=== PATIENT | male | born 1970 | race Caucasian/White ===

== ENCOUNTER 2017-01-04 23:05 | Inpatient (IN) | payer BC ==
--- NOTE | ~2017-01-04 | CN ---
Consultation Report [place] [address] [facility] [place]. [address] NAME: KELSEY MONTOYA II : 66 STATUS : ADM IN PAT#: [id number] AGE: 46 ADM/REG DATE : 01/05/17 MR#: [id number] REPORT SERV DATE: 01/05/17 DICTATED BY: SEA AARON DATE: 01/05/17 REPORT STATUS : Draft TRANSCRIBED BY: MODL DATE: 01/05/17 CONSULTATION DATE OF CONSULTATION: 01/05/2017 "I am asked to see this gentleman with change in bowel habit." HISTORY OF PRESENT ILLNESS: This patient has established with Dr. Multani. Apparently, there has been a recent diagnosis of severe ulcerative colitis being treated with steroids. Symptoms progressed, primarily through diarrhea. He has had weakness and fatigue and presented for evaluation. He denies any upper abdominal pain, but has had mild nausea. He has had mild lower abdominal cramps with voluminous diarrhea, with blood mixed in. He denies chills, fever, or sweats. REVIEW OF SYSTEMS: Otherwise unremarkable. PHYSICAL EXAMINATION: CHEST: Clear. CARDIAC: Regular rhythm. ABDOMEN: Soft and minimally tender. Bowel sounds are active. No palpable mass. LABORATORY DATA: Lab work has shown a white count of 8300, hemoglobin is 11.8. Electrolytes are normal. A CT scan of the abdomen was ordered and this is reportedly normal. IMPRESSION: Ulcerative colitis with increasing symptoms. PLAN: 1. Oral vancomycin 125 mg q.6 hours. 2. Begin IV steroids 100 mg every 8 hours and we will follow with you. CARLOS/LISA Sea Aaron M.D. / [id number] CC: Consultation Report [address] [address] NAME: KELSEY MONTOYA II : 66 STATUS : ADM IN PAT#: [id number] AGE: 46 ADM/REG DATE : 01/05/17 MR#: [id number] REPORT SERV DATE: 01/05/17 DICTATED BY: SEA AARON DATE: 01/05/17 REPORT STATUS : Draft TRANSCRIBED BY: LISA DATE: 01/05/17 MD Angelita Giordano M.D.
--- NOTE | ~2017-01-04 | DS ---
Discharge Summary [facility] [address] [place]. [address] NAME: KELSEY MONTOYA II : 66 STATUS : DIS IN PAT#: [id number] AGE: 46 ADM/REG DATE : 01/05/17 MR#: [id number] REPORT SERV DATE: 01/08/17 DICTATED BY: STERLING BURK DATE: 01/08/17 REPORT STATUS : Draft TRANSCRIBED BY: MODL DATE: 01/08/17 ADMISSION DATE: 01/05/2017 DISCHARGE DATE: 01/08/2017 DISCHARGE DIAGNOSES: 1. Clostridium difficile colitis. 2. Ulcerative colitis flare. 3. Intractable diarrhea. 4. Hematochezia, with stable hemoglobin. 5. Unintentional weight loss secondary to above. CONSULTS: GI. PROCEDURES: None. HOSPITAL COURSE: This is a 46-year-old gentleman with history of ulcerative colitis who was admitted to the hospital with C. diff colitis as well as ulcerative colitis flare. For details, please refer to the excellent H and P dictated by Dr. Jensen Francisco. In summary, the patient was admitted and he was treated with p.o. vancomycin as well as IV steroids for the C. diff colitis as well as the ulcerative colitis flare. It appeared that the patient was suffering more from ulcerative colitis as the patient remained afebrile, hemodynamically stable with normal white blood cell count throughout the entire hospital stay. The patient did have intractable diarrhea with bowel movements as many as 12 the first few days of the hospital stay and it decreased down to about five bowel movements per day. The patient was now confident that he would be able to not only replace the volume loss and diarrhea, but able to control his diarrhea better at home. After the patient was cleared for discharge from Gastroenterology, the patient is now being set up for discharge to home with close outpatient followup instructions. The patient has not had any other complications during this hospital stay. DISPOSITION: Home. DISCHARGE MEDICATIONS: 1. Vancomycin 125 mg p.o. q.6 hours x10 days. 2. Zofran 4 mg to 8 mg p.o. q.4 hours p.r.n. 3. Prednisone per GI. FOLLOWUP: 1. Please follow up with PCP in the next one to two weeks. 2. Please follow up with GI as instructed. A total of 25 minutes spent in coordinating this patient's discharge today. DICTATED BY: Sterling Burk MD Discharge Summary [facility] [address] [address] NAME: KELSEY MONTOYA II : 66 STATUS : DIS IN PAT#: [id number] AGE: 46 ADM/REG DATE : 01/05/17 MR#: [id number] REPORT SERV DATE: 01/08/17 DICTATED BY: STERLING BURK DATE: 01/08/17 REPORT STATUS : Draft TRANSCRIBED BY: LISA DATE: 01/08/17 [facility] [place] Sterling Burk MD / [id number] CC: MD TRINITY Giordano DAVID KEITH
--- NOTE | ~2017-01-04 | HP ---
History And Physical [place] [id number] [facility] [place]. [address] NAME: KELSEY MONTOYA II : 66 STATUS : ADM IN PAT#: [id number] AGE: 46 ADM/REG DATE : 01/05/17 MR#: [id number] REPORT SERV DATE: 01/05/17 DICTATED BY: FRANK LOZANO DATE: 01/05/17 REPORT STATUS : Draft TRANSCRIBED BY: MODL DATE: 01/05/17 DATE OF ADMISSION: 01/05/2017 CHIEF COMPLAINT: A 46-year-old male, recently diagnosed with ulcerative colitis, now presenting with intractable diarrhea and abdominal pain. HISTORY OF PRESENT ILLNESS: The patient's history was obtained through careful interview with the patient, coupled with review of [facility] and [facility] medical records. About a month ago, the patient began to develop bloody diarrhea and then two weeks ago he was able to present with Dr. Refugio Multani, sand sifter, for a colonoscopy and was diagnosed with "ulcerative colitis." The patient has been on high-dose steroids since that time but despite this has had a persistent diarrhea, now up to about 12+ bowel movements a day. There is consistent blood tinging in his diarrhea. He describes increasing abdominal discomfort in his lower quadrants, the right greater than left, a gassy cramping pressure-like quality, 6/10 severity. He describes lightheadedness, weakness. He has lost about 25 pounds in the last month alone and then since 08/2016 had an additional eight pounds of weight loss. He has been diaphoretic, has had nausea, but no vomiting. No fevers or chills. No shortness of breath. REVIEW OF SYSTEMS: Otherwise, a 14-point review of systems was obtained and was negative. PAST MEDICAL HISTORY: 1. Ulcerative colitis. Apparently, diagnosed by colonoscopy two weeks ago, but he believes he had a bloody diarrhea episode of this about 15 years ago. 2. Nephrolithiasis, status post lithotripsy, seen by Dr. Coronel. 3. No cardiac disease. No lung disease. PAST SURGICAL HISTORY: Denies any. ALLERGIES: VIOXX. SOCIAL HISTORY: No tobacco abuse. Social alcohol use. He is . Has a company tanker truck driver. Lives in [place], [place]. Has one 18-year-old child. FAMILY HISTORY: Diabetes and cancer. CURRENT MEDICATIONS: Include prednisone 30 mg p.o. b.i.d. History And Physical [address] [place]. [address] NAME: KELSEY MONTOYA II : 66 STATUS : ADM IN PAT#: [id number] AGE: 46 ADM/REG DATE : 01/05/17 MR#: [id number] REPORT SERV DATE: 01/05/17 DICTATED BY: FRANK LOZANO DATE: 01/05/17 REPORT STATUS : Draft TRANSCRIBED BY: LISA DATE: 01/05/17 PHYSICAL EXAMINATION: VITAL SIGNS: Temperature 97.4, pulse 89, blood pressure 128/70, respiratory rate 22, and O2 saturation 98% on room air. Orthostatics showed increase of the pulse to 115 and a drop of blood pressure to 100/65. GENERAL: An ill-appearing male, in evidence of distress secondary to abdominal cramping. HEENT: Pupils equal, round, and reactive to light. No conjunctival pallor. No scleral icterus. Nares are patent. Oropharynx is clear of obstruction. Dry mucous membranes. NECK: Trachea midline. No thyromegaly. LYMPH: No cervical lymphadenopathy. No supraclavicular lymphadenopathy. RESPIRATORY: Clear to auscultation at bases. No wheezes, rales, or rhonchi. Normal respiratory effort. CARDIOVASCULAR: Regular rate and rhythm. No murmurs, rubs, or gallops. No extremity edema is appreciated. ABDOMEN: Significant lower quadrant abdominal discomfort with guarding. No rebound. The patient has active bowel tones. No hepatosplenomegaly. DERMATOLOGICAL: Warm and dry extremities. No pallor. No cyanosis. PSYCHIATRIC: Normal affect. Good mood. Alert and oriented x3. LABORATORY DATA: White blood cell count 8.3, hemoglobin 12, hematocrit 34, and platelets 371. Sodium 135, potassium 3.9, chloride 98, bicarb 31, BUN 12, creatinine 0.96, glucose 138, albumin 2.5, INR 1.2. Liver enzymes within normal limits. STUDIES: 1. CT scan of the abdomen shows diffuse colitis. 2. EKG by my own evaluation shows sinus rhythm, incomplete right bundle-branch block. ASSESSMENT AND PLAN: 1. C. difficile colitis. The stool has come back positive for toxin. Place on IV Flagyl, p.o. Vancocin. 2. Ulcerative colitis. Consult Dr. Multani, sand sifter. 3. Anemia. 4. Weight loss with about a 30 pounds weight loss over the last six months. KPL/MODL Frank Lozano M.D. / [id number] CC: MD Angelita Giordano M.D. Michael Goodman, M.D.
[2017-01-04 20:40] LABS: BASOPHILS 0.2 %; BASOPHILS ABSOLUTE 0.02 10/3/uL (0.0-0.16); EOSINOPHILS 1.4 %; EOSINOPHILS ABSOLUTE 0.12 10/3/uL (0.0-0.53); IMMATURE GRANULOCYTES 0.5 %; IMMATURE GRANULOCYTES ABSOLUTE 0.04 10/3/uL (0.0-0.11); LYMPHOCYTES 13.6 %; LYMPHOCYTES ABSOLUTE 1.13 10/3/uL (0.67-4.30); MEAN CORPUS HGB CONC 34.6 g/dL (32.0-36.0); MEAN CORPUSCULAR HEMOGLOB 31.4 pg (26.0-34.0); MEAN PLATELET VOLUME 8.4 fL (9.2-13.0); MONOCYTES 12.3 %; MONOCYTES ABSOLUTE 1.02 10/3/uL (0.21-1.20); NEUTROPHILS ABSOLUTE 5.99 10/3/uL (2.02-8.40); WHITE BLOOD CELLS 8.3 10/3/uL (4.5-10.5)
[2017-01-04 20:42] LABS: HEMATOCRIT 34.1 % (40.0-51.0); HEMOGLOBIN 11.8 g/dL (13.6-17.8); MANUAL DIFF NO %; MEAN CORPUSCULAR VOLUME 90.7 fL (80-100); PLATELET COUNT 371 10/3/uL (150-400); RED CELL COUNT 3.76 10/6/uL (4.7-6.1)
[2017-01-04 20:56] LABS: ALKALINE PHOSPHATASE 64 U/L (45-117); BUN (BLOOD UREA NITROGEN) 12 MG/DL (6-23); CALCIUM, SERUM 8.3 MG/DL (8.5-10.4); CHLORIDE, SERUM 98 MMOL/L (96-112); CREATININE 0.96 MG/DL (0.70-1.30); GFR AFRICAN AMERICAN 108 ML/MIN (>=60); GFR NON AFRICAN AMERICAN 93 ML/MIN (>=60); POTASSIUM, SERUM 3.9 MMOL/L (3.5-5.3); SGOT(AST) 14 U/L (5-40); SGPT(ALT) 36 U/L (5-65); SODIUM, SERUM 135 MMOL/L (135-148); TOTAL BILIRUBIN 0.6 MG/DL (0-1.2)
[2017-01-04 20:59] LABS: INTERNATIONAL NORMAL RATI 1.2 UNITS (-); PARTIAL THROMBO TIME 27.1 SEC (22.5-37.2); PROTIME (NOT ORD) 14.9 SEC (12.0-14.5)
[2017-01-04 21:00] LABS: A/G RATIO 0.7 (0.7-1.9); ALBUMIN 2.5 G/DL (3.5-5.0); CO2 (CARBON DIOXIDE) 31 MMOL/L (24-34); GLOBULIN 3.7 G/DL (2.5-4.1); GLUCOSE, SERUM 138 MG/DL (60-99); TOTAL PROTEIN 6.2 G/DL (6.0-8.5)
[~2017-01-04 23:05] MED LIST: ADVIL PO; ALLEGRA180 PO; DIL4TAB PO; GOODY'S BODY P1 EACH PO; ZOFRAN4 PO; [UNRECOGNIZED DRUG - REMARK]
[2017-01-05] MEDS ORDERED: P10 PO (01:50)
[2017-01-05 10:19] LABS: A/G RATIO 0.6 (0.7-1.9); ALBUMIN 2.1 G/DL (3.5-5.0); ALKALINE PHOSPHATASE 56 U/L (45-117); BUN (BLOOD UREA NITROGEN) 10 MG/DL (6-23); CALCIUM, SERUM 7.7 MG/DL (8.5-10.4); CHLORIDE, SERUM 102 MMOL/L (96-112); CREATININE 0.68 MG/DL (0.70-1.30); GFR AFRICAN AMERICAN 131 ML/MIN (>=60); GFR NON AFRICAN AMERICAN 113 ML/MIN (>=60); GLOBULIN 3.4 G/DL (2.5-4.1); GLUCOSE, SERUM 158 MG/DL (60-99); PHOSPHORUS, SERUM 3.6 MG/DL (2.5-4.5); POTASSIUM, SERUM 4.5 MMOL/L (3.5-5.3); SGOT(AST) 16 U/L (5-40); SGPT(ALT) 31 U/L (5-65); SODIUM, SERUM 136 MMOL/L (135-148); TOTAL PROTEIN 5.5 G/DL (6.0-8.5); ULTRASENSITIVE TSH 0.422 MCIU/ML (0.358-3.740)
[2017-01-05 10:20] LABS: CO2 (CARBON DIOXIDE) 26 MMOL/L (24-34)
[2017-01-05 10:49] LABS: HEMATOCRIT 28.5 % (40.0-51.0); HEMOGLOBIN 9.9 g/dL (13.6-17.8); MANUAL DIFF YES %; MEAN CORPUS HGB CONC 34.7 g/dL (32.0-36.0); MEAN CORPUSCULAR HEMOGLOB 31.7 pg (26.0-34.0); MEAN CORPUSCULAR VOLUME 91.3 fL (80-100); MEAN PLATELET VOLUME 8.2 fL (9.2-13.0); PLATELET COUNT 303 10/3/uL (150-400); RBC DISTRIBUTION WIDTH 14.3 % (12.0-16.0); RED CELL COUNT 3.12 10/6/uL (4.7-6.1); WHITE BLOOD CELLS 7.7 10/3/uL (4.5-10.5)
[2017-01-05 11:10] LABS: BAND NEUTROPHILS 3 %; LYMPHOCYTES 4 %; LYMPHOCYTES ABSOLUTE (CALC) 0.31 10/3/uL (0.67-4.30); NEUTROPHILS ABSOLUTE (CALC) 7.39 10/3/uL (2.02-8.40); PLATELET ESTIMATE ADQ (ADEQUATE); RBC MORPHOLOGY NORM (NORMAL); SEGMENTED NEUTROPHIL (0) 93 %; TOTAL NUCLEATED CELLS 100
[2017-01-06 06:17] LABS: HEMATOCRIT 29.6 % (40.0-51.0); MEAN CORPUS HGB CONC 33.8 g/dL (32.0-36.0); MEAN CORPUSCULAR HEMOGLOB 31.1 pg (26.0-34.0); MEAN CORPUSCULAR VOLUME 91.9 fL (80-100); MEAN PLATELET VOLUME 8.4 fL (9.2-13.0); PLATELET COUNT 326 10/3/uL (150-400); RBC DISTRIBUTION WIDTH 14.4 % (12.0-16.0); RED CELL COUNT 3.22 10/6/uL (4.7-6.1); WHITE BLOOD CELLS 8.1 10/3/uL (4.5-10.5)
[2017-01-06 06:21] LABS: MANUAL DIFF YES %
[2017-01-06 06:24] LABS: BUN (BLOOD UREA NITROGEN) 10 MG/DL (6-23); CALCIUM, SERUM 7.9 MG/DL (8.5-10.4); CHLORIDE, SERUM 105 MMOL/L (96-112); CO2 (CARBON DIOXIDE) 28 MMOL/L (24-34); CREATININE 0.63 MG/DL (0.70-1.30); GFR AFRICAN AMERICAN 135 ML/MIN (>=60); GFR NON AFRICAN AMERICAN 117 ML/MIN (>=60); SODIUM, SERUM 135 MMOL/L (135-148)
[2017-01-06 06:26] LABS: GLUCOSE, SERUM 116 MG/DL (60-99)
[2017-01-06 06:46] LABS: BAND NEUTROPHILS 46 %; EOSINOPHILS 2 %; EOSINOPHILS ABSOLUTE (CALC) 0.16 10/3/uL (0.0-0.53); IMMATURE GRANS ABSOLUTE (CALC) 0.24 10/3/uL (0.0-0.11); LYMPHOCYTES 15 %; LYMPHOCYTES ABSOLUTE (CALC) 1.22 10/3/uL (0.67-4.30); METAMYELOCYTES 3 %; MONOCYTES 2 %; MONOCYTES ABSOLUTE (CALC) 0.16 10/3/uL (0.21-1.20); NEUTROPHILS ABSOLUTE (CALC) 6.32 10/3/uL (2.02-8.40); PLATELET ESTIMATE ADQ (ADEQUATE); RBC MORPHOLOGY NORM (NORMAL); SEGMENTED NEUTROPHIL (0) 32 %; TOTAL NUCLEATED CELLS 100
[2017-01-06 07:23] LABS: PROCALCITONIN 0.09 ng/mL (<0.5)
[2017-01-06 19:39] LABS: ASCORBIC ACID (UR NOT ORDER) NEG (NEG); BILIRUBIN, URINE NEGATIVE (NEG); KETONE, URINE NEGATIVE (NEG); LEUKOCYTE ESTERASE(NOT OR NEG (NEG); WBC (NOT ORDERED) (RFLEX) 1 (0-5)
[2017-01-07 05:33] LABS: HEMOGLOBIN 11.1 g/dL (13.6-17.8); MEAN CORPUS HGB CONC 33.1 g/dL (32.0-36.0); MEAN CORPUSCULAR HEMOGLOB 30.7 pg (26.0-34.0); MEAN CORPUSCULAR VOLUME 92.8 fL (80-100); MEAN PLATELET VOLUME 8.3 fL (9.2-13.0); PLATELET COUNT 334 10/3/uL (150-400); RBC DISTRIBUTION WIDTH 14.5 % (12.0-16.0); RED CELL COUNT 3.61 10/6/uL (4.7-6.1); WHITE BLOOD CELLS 7.5 10/3/uL (4.5-10.5)
[2017-01-07 05:36] LABS: HEMATOCRIT 33.5 % (40.0-51.0); MANUAL DIFF YES %
[2017-01-07 05:45] LABS: BUN (BLOOD UREA NITROGEN) 10 MG/DL (6-23); CALCIUM, SERUM 8.4 MG/DL (8.5-10.4); CHLORIDE, SERUM 101 MMOL/L (96-112); CO2 (CARBON DIOXIDE) 28 MMOL/L (24-34); CREATININE 0.81 MG/DL (0.70-1.30); GFR AFRICAN AMERICAN 122 ML/MIN (>=60); GFR NON AFRICAN AMERICAN 105 ML/MIN (>=60); GLUCOSE, SERUM 131 MG/DL (60-99); POTASSIUM, SERUM 3.9 MMOL/L (3.5-5.3); SODIUM, SERUM 135 MMOL/L (135-148)
[2017-01-07 06:28] LABS: BAND NEUTROPHILS 30 %; IMMATURE GRANS ABSOLUTE (CALC) 0.08 10/3/uL (0.0-0.11); LYMPHOCYTES 4 %; METAMYELOCYTES 1 %; MONOCYTES 4 %; NEUTROPHILS ABSOLUTE (CALC) 6.83 10/3/uL (2.02-8.40); SEGMENTED NEUTROPHIL (0) 61 %; TOTAL NUCLEATED CELLS 100
[2017-01-07 06:29] LABS: PLATELET ESTIMATE ADQ (ADEQUATE); RBC MORPHOLOGY NORM (NORMAL); TOXIC GRANULATION 1+
[2017-01-08] MEDS ORDERED: ZOFRAN4 PO (15:22)
[2017-01-08] MEDS ORDERED: VANCOCIN HCL125 MG PO (15:23)
== END 2017-01-08 16:12 | disposition home or self-care (01) | DRG 372 ==
LOC: ER 23:05 → 6NO 01-05 01:40
PROVIDERS: Hospitalist; Internal Medicine
DX: A04.7 Enterocolitis due to Clostridium difficile (principal); K51.90 Ulcerative colitis, unspecified, without complications; D62 Acute posthemorrhagic anemia; R63.4 Abnormal weight loss; Z68.35 Body mass index [BMI] 35.0-35.9, adult; Z79.52 Long term (current) use of systemic steroids; Z87.442 Personal history of urinary calculi; I45.10 Unspecified right bundle-branch block
CPT/HCPCS: 36415; 74176; 80048; 80053; 81001; 83690; 83735; 84100; 84145; 84443; 85025; 85610; 85730; 86850; 86900; 86901; 87493; 87493-59; 93005; 96372; 96374; 96375; 99285; A9270-GY; J1720; J2405; J2930

== ENCOUNTER 2017-01-10 21:23 | Emergency (ER) | payer BC ==
--- NOTE | ~2017-01-10 | HP ---
History And Physical [address] [place]. [address] NAME: KELSEY MONTOYA II : 66 STATUS : COUNTS INCLUDE 234 BEDS AT THE [facility]#: [id number] AGE: 46 ADM/REG DATE : 01/10/17 MR#: [id number] REPORT SERV DATE: 01/11/17 DICTATED BY: REFUGIO SU DATE: 01/11/17 REPORT STATUS : Draft TRANSCRIBED BY: MODL DATE: 01/11/17 DATE OF ADMISSION: 01/10/2017 CHIEF COMPLAINT: Ulcerative colitis, C diff. HISTORY OF PRESENT ILLNESS: This patient has a history of possible ulcerative colitis, 15 years prior to admission. He was on Asacol at that time. Prior negative colonoscopy three and a half years ago by Dr. Hall. In early November, he began having diarrhea with watery stools and bleeding mucus. He is having 10-15 stools a day. Colonoscopy was done on 12/16/2016. The colon was markedly abnormal. There was abnormality from the dentate line to the cecum, friability, spontaneous bleeding, hemorrhagic mucosa. There were no deep ulcerations. The patient was started on prednisone 40 mg daily and Lialda. He had a hemoglobin of 15.4 on 12/10/2016. On 12/16/2016, colonoscopy. He had a negative C difficile. On 12/30/2016, he was talked about starting on Remicade. He was starting to improve, however, on 01/04/2017, he was having up to 10 bloody bowel movements a day. He was sent to [facility] emergency room. He had C difficile, was positive. His prednisone had been increased prior to that 60 mg a day. He was admitted on 01/05/2017. He had been having more pain. He had a CT that showed diffuse colitis. He was started on vancomycin. He was dismissed on 01/08/2017. He did have some orthostatic dizziness and near-syncope prior to admission. He was dismissed. He began having more diarrhea at home. He went to [facility] emergency room last night. He did complain of some abdominal pain, distention. Cecal size was 8 cm. He was sent home. We called in this morning and he was still feeling quite weak. His hemoglobin last night was 9.9, it was 11.1 on the 9th, 11.[address] showed some 8.3 cm cecum and transverse colon of 6.3 cm. He states that he passed gas last night. This morning, he does not have as much abdominal pain. REVIEW OF SYSTEMS: Otherwise negative. MEDICATIONS: Prednisone 60 mg a day, vancomycin 120 four times a day. ALLERGIES: VIOXX. SOCIAL HISTORY: He is a nonsmoker. Nondrinker. Family history of diabetes and cancer. PHYSICAL EXAMINATION: VITAL SIGNS: Pulse is 100, blood pressure 120/70, 02 saturation 98%. GENERAL: Quite pale, looks ill. HEENT: Pupils are equal and reactive to light. Mouth and throat, mucous membranes are moist. NECK: No adenopathy. CHEST: Clear. CARDIAC: Normal. ABDOMEN: Mildly distended with some mild tenderness without peritoneal signs. LABORATORY DATA: White count was normal last night. History And Physical [address] [address] NAME: KELSEY MONTOYA II : 66 STATUS : COUNTS INCLUDE 234 BEDS AT THE [facility]#: [id number] AGE: 46 ADM/REG DATE : 01/10/17 MR#: [id number] REPORT SERV DATE: 01/11/17 DICTATED BY: REFUGIO SU DATE: 01/11/17 REPORT STATUS : Draft TRANSCRIBED BY: MODL DATE: 01/11/17 IMPRESSION: 1. Severe ulcerative colitis. The dilatation is somewhat disconcerting though his white count is normal. He may be getting toxic. 2. On superimposed Clostridium difficile infection, unclear how much is that versus the ulcerative colitis. 3. Dropping hemoglobin, down to 9.9. PLAN: 1. The patient will be admitted for rehydration and possible transfusion. He did receive Remicade 10 mg/kg here at a high dose because of the toxicity and probably losing anti- TNF in bowel movements. 2. Continue steroids. 3. We will get a surgical consult. 4. Serial flat and upright. MG/MODL Refugio Su M.D. / [id number] CC: Angelita Guillen M.D.
[2017-01-10 20:10] LABS: BASOPHILS 0.1 %; BASOPHILS ABSOLUTE 0.01 10/3/uL (0.0-0.16); EOSINOPHILS 0 %; ER CBC TAT 0 Hrs 07 Mins; HEMATOCRIT 29.7 % (40.0-51.0); HEMOGLOBIN 9.9 g/dL (13.6-17.8); IMMATURE GRANULOCYTES 0.6 %; LYMPHOCYTES ABSOLUTE 0.48 10/3/uL (0.67-4.30); MEAN CORPUS HGB CONC 33.3 g/dL (32.0-36.0); MEAN CORPUSCULAR HEMOGLOB 30.5 pg (26.0-34.0); MEAN CORPUSCULAR VOLUME 91.4 fL (80-100); MONOCYTES ABSOLUTE 0.58 10/3/uL (0.21-1.20); NEUTROPHILS 88.3 %; PLATELET COUNT 397 10/3/uL (150-400); RBC DISTRIBUTION WIDTH 14.2 % (12.0-16.0); RED CELL COUNT 3.25 10/6/uL (4.7-6.1); WHITE BLOOD CELLS 9.6 10/3/uL (4.5-10.5)
[2017-01-10 20:12] LABS: IMMATURE GRANULOCYTES ABSOLUTE 0.06 10/3/uL (0.0-0.11)
[2017-01-10 20:13] LABS: MANUAL DIFF NO %
[2017-01-10 20:25] LABS: A/G RATIO 0.4 (0.7-1.9); ALBUMIN 1.8 G/DL (3.5-5.0); ALKALINE PHOSPHATASE 73 U/L (45-117); BUN (BLOOD UREA NITROGEN) 7 MG/DL (6-23); CALCIUM, SERUM 7.9 MG/DL (8.5-10.4); CHLORIDE, SERUM 96 MMOL/L (96-112); CO2 (CARBON DIOXIDE) 31 MMOL/L (24-34); CREATININE 0.81 MG/DL (0.70-1.30); GFR AFRICAN AMERICAN 122 ML/MIN (>=60); GFR NON AFRICAN AMERICAN 105 ML/MIN (>=60); GLOBULIN 4.2 G/DL (2.5-4.1); GLUCOSE, SERUM 128 MG/DL (60-99); POTASSIUM, SERUM 4.2 MMOL/L (3.5-5.3); SGOT(AST) 16 U/L (5-40); SGPT(ALT) 46 U/L (5-65); SODIUM, SERUM 135 MMOL/L (135-148); TOTAL BILIRUBIN 0.8 MG/DL (0-1.2)
[2017-01-10 20:29] LABS: ASCORBIC ACID (UR NOT ORDER) NEG (NEG); BILIRUBIN, URINE NEGATIVE (NEG); ER URINALYSIS TAT 0 Hrs 11 Mins; KETONE, URINE NEGATIVE (NEG); LEUKOCYTE ESTERASE(NOT OR NEG (NEG); NITRITE (URINE) NEG (NEG); WBC (NOT ORDERED) (RFLEX) 3 (0-5)
[2017-01-10 20:31] LABS: BAND NEUTROPHILS 32 %; ER DIFF TAT 0 Hrs 28 Mins; LYMPHOCYTES 5 %; LYMPHOCYTES ABSOLUTE (CALC) 0.48 10/3/uL (0.67-4.30); METAMYELOCYTES 1 %; MONOCYTES 2 %; MONOCYTES ABSOLUTE (CALC) 0.19 10/3/uL (0.21-1.20); NEUTROPHILS ABSOLUTE (CALC) 8.83 10/3/uL (2.02-8.40); PLATELET ESTIMATE ADQ (ADEQUATE); SEGMENTED NEUTROPHIL (0) 60 %; TOTAL NUCLEATED CELLS 100
[2017-01-10 20:32] LABS: TEARDROP SHAPED RBCS OCC (0-2/OIF)
[2017-01-10 20:33] LABS: TARGET CELLS OCC (1-2/OIF) (0-1/OIF)
[~2017-01-10 21:23] MED LIST changes: +P10 PO; +VANCOCIN HCL125 MG PO
[2017-01-11] MEDS ORDERED: P20 PO (20:55)
[2017-01-11] MEDS ORDERED: ZOFRAN4 PO (20:55)
[2017-01-11] MEDS ORDERED: VANCOCIN HCL125 MG PO (20:56)
[2017-01-11] MEDS ORDERED: REMICADE IV (20:57)
== END 2017-01-10 23:41 | disposition home or self-care (01) ==
LOC: ER 21:23
PROVIDERS: Emergency Medicine
DX: A04.7 Enterocolitis due to Clostridium difficile (principal); Z87.442 Personal history of urinary calculi; Z88.6 Allergy status to analgesic agent; Z79.52 Long term (current) use of systemic steroids; Z79.899 Other long term (current) drug therapy
CPT/HCPCS: 74177; 80053; 81001; 83690; 85025; 96374; 99284; J1170; J2405; Q9967

== ENCOUNTER 2017-01-11 17:00 | Inpatient (IN) | payer BC ==
--- NOTE | ~2017-01-11 | DS ---
Discharge Summary [facility] [address] [place]. [address] NAME: KELSEY MONTOYA II : 66 STATUS : ADM IN PAT#: [id number] AGE: 46 ADM/REG DATE : 01/11/17 MR#: [id number] REPORT SERV DATE: 01/19/17 DICTATED BY: REFUGIO SU DATE: 01/18/17 REPORT STATUS : Draft TRANSCRIBED BY: MODAbel DATE: 01/18/17 ADMISSION DATE: 01/11/2017 DISCHARGE DATE: DISCHARGE DIAGNOSES: 1. Severe ulcerative colitis flare. 2. Clostridium difficile infection. 3. Iron deficiency. PRESENT ILLNESS: This patient had a history of ulcerative colitis 15 years prior to admission. He was on Asacol at that time. In early November of this year, he began having diarrhea with watery stools and bleeding. Colonoscopy on 12/16/2016 showed some moderate-to severe changes throughout the colon. There was spontaneously bleeding friability hemorrhagic mucosa. He was started on prednisone 40 mg and Lialda. His hemoglobin was 15.4 on 12/10/2016. He had negative C. difficile toxin. On 01/04/2017, he began having 10 bloody bowel movements a day. He was admitted to [facility], C. difficile was positive. CT showed diffuse colitis. He began having orthostatic dizziness, just passing gross blood. Hemoglobin the day prior to admission was 9.9, it was 11.1 four days prior. The cecum was 8.3 cm. On exam, he was pale and tachycardic. Abdomen was mildly tender. Before being sent to the hospital, the patient was given 10 mg/kg Remicade to try to get control of the disease and avoid surgery. His admitting white count was 5200. HOSPITAL COURSE AND ASSESSMENT: The patient was treated with Solu-Medrol 60 [address] twice daily[address]. Phil Castelan was consulted to follow surgically. Hemoglobin was 8.8, fell to 8.2. He was given Ferrlecit protocol. His ferritin was elevated, his iron was low. CRP was 185 and fell to 51. His vancomycin was continued. His stools decreased to two to three a day. His abdominal pain and distention improved. Repeat KUB showed improved gaseous distention of the colon. The steroids were gradually reduced to 60 mg daily. He markedly improved. He had a dietary consult. PLAN: 1. To be dismissed on 60 mg a day to be tapered. 2. Will receive his second Remicade of 10 mg/kg. 3. Will be continued on a tapering course of vancomycin over the next month to prevent relapse. 4. He will be followed closely. His condition improved. DICTATED BY: Refugio Su M.D. MG/LISA Refugio Su M.D. Discharge Summary [address] [address] NAME: KELSEY MONTOYAREBECCA CASTILLO : 66 STATUS : ADM IN PAT#: [id number] AGE: 46 ADM/REG DATE : 01/11/17 MR#: [id number] REPORT SERV DATE: 01/19/17 DICTATED BY: REFUGIO SU DATE: 01/18/17 REPORT STATUS : Draft TRANSCRIBED BY: LISA DATE: 01/18/17 / [id number]
--- NOTE | ~2017-01-11 | CN ---
Consultation Report [place] [id number] [place]. [address] NAME: KELSEY GIBBS II : 66 STATUS : DIS IN PAT#: [id number] AGE: 46 ADM/REG DATE : 01/11/17 MR#: [id number] REPORT SERV DATE: 02/22/17 DICTATED BY: EZEKIEL ABRAHAM DATE: 01/12/17 REPORT STATUS : Draft TRANSCRIBED BY: MODL DATE: 01/12/17 CONSULTATION DATE OF CONSULTATION: 01/11/2017 CHIEF COMPLAINT: Abdominal pain. REASON FOR CONSULTATION: Ulcerative colitis with C difficile. HISTORY: Mr. Gibbs is a 46-year-old male, who has presented with greater than 10 bowel movements per day and had been recently hospitalized for ulcerative colitis and then brought back into the hospital. He has had inflammatory bowel disease for approximately 15 years and had been previously easily controlled on Asacol. Three half years ago, a colonoscopy by Dr. Lorenzo was negative. On 12/16/2016 of this year, there was a colonoscopy which revealed friability, spontaneous bleeding, and hemorrhagic mucosa from the dentate line going cephalad to the cecum. There were no deep ulcerations. He was placed on prednisone and Lialda, and since that time, the hemoglobin has diminished down from approximately 15.5 to 10, and he was found to have a C difficile positive within the last months, though, the one yesterday is reported by the nurse to be negative. CT scan revealed mild diffuse colitis with dilatation of the transverse colon and cecum being 6.3 cm in transverse colon consistent with lauryn colon. PAST MEDICAL HISTORY: Ulcerative colitis. HOME MEDICATIONS: Prednisone and vancomycin. REVIEW OF SYSTEMS: Negative for chest pain or shortness of breath. ALLERGIES: HE HAS ALLERGIES TO ZYVOX. OF NOTE, HIS DIARRHEA HAS BEEN BLOODY. SOCIAL HISTORY: Significant for social alcohol use and he denies smoking. FAMILY HISTORY: Significant for diabetes and cancer, but not for inflammatory bowel disease. OTHER MEDICAL ILLNESSES: Nephrolithiasis and there is no history of cardiac disease. PHYSICAL EXAMINATION: VITAL SIGNS: His blood pressure is 131/71, respirations 20, pulse 82, and temperature 99.0. GENERAL: He is alert, and very talkative, and a little bit nervous. HEENT: There is no scleral icterus. LUNGS: There is no use of accessory muscles of breathing. Consultation Report [facility] [address] [place] [address] NAME: KELSEY GIBBS II : 66 STATUS : DIS IN PAT#: [id number] AGE: 46 ADM/REG DATE : 01/11/17 MR#: [id number] REPORT SERV DATE: 02/22/17 DICTATED BY: EZEKIEL ABRAHAM DATE: 01/12/17 REPORT STATUS : Draft TRANSCRIBED BY: MODL DATE: 01/12/17 HEART: Regular rhythm and rate. ABDOMEN: Soft and very minimally distended, with some mild tenderness in lower abdomen. EXTREMITIES: Reveals no cyanosis or clubbing, but there is trace edema in bilateral lower extremities. SKIN: Looks a little bit pale. ADDITIONAL DATA: White blood cell count of 4.5, hemoglobin at 8.2, and albumin of 1.6. IMPRESSION: Ulcerative colitis in the face of recent Clostridium difficile colitis. He has received a dose of Remicade. I recommended close observation and if he worsens and/or gets a toxic lauryn colon, then I will recommend total colectomy with ileostomy in preparation for 2 or 3 stage restorative operation. Either myself or one of my partners will follow along. JOSÉ MIGUEL/LISA Irasema Abraham M.D. / [id number] CC: Edward Milner M.D.
--- NOTE | ~2017-01-11 | DS ---
Discharge Summary [place] [address] [place]. [address] NAME: KELSEY MONTOYA II : 66 STATUS : ADM IN PAT#: [id number] AGE: 46 ADM/REG DATE : 01/11/17 MR#: [id number] REPORT SERV DATE: 01/20/17 DICTATED BY: REFUGIO SU DATE: 01/20/17 REPORT STATUS : Draft TRANSCRIBED BY: MODL DATE: 01/20/17 ADMISSION DATE: 01/11/2017 DISCHARGE DATE: ADDENDUM: FINAL DISCHARGE SUMMARY: 1. Severe ulcerative colitis flare. 2. Clostridium difficile infection. 3. Iron deficiency. 4. Hypovolemia with hypotension. 5. Mild hyperglycemia. FINAL SUMMARY: This is an addendum to the previous discharge summary dated 01/19/2017. Date of this dictation 01/21/2017. Since the previous summary, the patient has done well. Stools are down to four to five a day with no bleeding. He had some periods of hypotension with blood pressure in the 80s. He was given normal saline for 24 hours as well as salt-poor albumin. This was felt to be due to hypovolemia from fluid loss in his gut. CRP fell to 22. Vancomycin was reduced. Uceris was added. He was seen by Dietary about diabetic diet, will be covered with low-dose sliding scale insulin. DISCHARGE MEDICINES: 1. Entocort 9 mg daily. 2. NovoLog injection per sliding scale. 3. Pantoprazole b.i.d. 4. Vancomycin 125 t.i.d. on a tapering schedule. 5. Prednisone 60 mg daily. 6. He will receive Remicade in approximately five days. CONDITION ON DISCHARGE: Markedly improved. DICTATED BY: Edward Milner/LISA Refugio Su M.D. / [id number] CC: Discharge Summary [place] [address] [place]. [address] NAME: KELSEY MONTOYA II : 66 STATUS : ADM IN PAT#: [id number] AGE: 46 ADM/REG DATE : 01/11/17 MR#: [id number] REPORT SERV DATE: 01/20/17 DICTATED BY: REFUGIO SU DATE: 01/20/17 REPORT STATUS : Draft TRANSCRIBED BY: MODL DATE: 01/20/17 Edward Milner M.D.
[2017-01-11 18:05] LABS: HEMOGLOBIN 8.8 g/dL (13.6-17.8); MEAN CORPUS HGB CONC 33.5 g/dL (32.0-36.0); MEAN CORPUSCULAR HEMOGLOB 30.3 pg (26.0-34.0); MEAN CORPUSCULAR VOLUME 90.7 fL (80-100); MEAN PLATELET VOLUME 7.8 fL (9.2-13.0); PLATELET COUNT 356 10/3/uL (150-400)
[2017-01-11 18:07] LABS: HEMATOCRIT 26.3 % (40.0-51.0); WHITE BLOOD CELLS 5.2 10/3/uL (4.5-10.5)
[2017-01-11 18:08] LABS: MANUAL DIFF YES %
[2017-01-11 18:12] LABS: INTERNATIONAL NORMAL RATI 1.4 UNITS (-); PROTIME (NOT ORD) 17.1 SEC (12.0-14.5)
[2017-01-11 18:30] LABS: BAND NEUTROPHILS 49 %; LYMPHOCYTES 3 %; LYMPHOCYTES ABSOLUTE (CALC) 0.16 10/3/uL (0.67-4.30); MONOCYTES 4 %; MONOCYTES ABSOLUTE (CALC) 0.21 10/3/uL (0.21-1.20); NEUTROPHILS ABSOLUTE (CALC) 4.84 10/3/uL (2.02-8.40); SEGMENTED NEUTROPHIL (0) 44 %; TOTAL NUCLEATED CELLS 100; TOXIC GRANULATION 2+
[2017-01-11 18:31] LABS: PLATELET ESTIMATE ADQ (ADEQUATE); RBC MORPHOLOGY NORM (NORMAL)
[2017-01-11 18:38] LABS: A/G RATIO 0.5 (0.7-1.9); ALBUMIN 1.7 G/DL (3.5-5.0); BUN (BLOOD UREA NITROGEN) 7 MG/DL (6-23); CHLORIDE, SERUM 98 MMOL/L (96-112); CO2 (CARBON DIOXIDE) 30 MMOL/L (24-34); CREATININE 0.62 MG/DL (0.70-1.30); FERRITIN 489 NG/ML (26-388); GFR AFRICAN AMERICAN 136 ML/MIN (>=60); GFR NON AFRICAN AMERICAN 117 ML/MIN (>=60); GLOBULIN 3.7 G/DL (2.5-4.1); GLUCOSE, SERUM 121 MG/DL (60-99); IRON BINDING CAPACITY 143 MCG/DL (250-450); IRON, SERUM 10 MCG/DL (35-150); POTASSIUM, SERUM 4.2 MMOL/L (3.5-5.3); SGOT(AST) 10 U/L (5-40); SGPT(ALT) 33 U/L (5-65); SODIUM, SERUM 134 MMOL/L (135-148); TOTAL BILIRUBIN 0.6 MG/DL (0-1.2); TOTAL PROTEIN 5.4 G/DL (6.0-8.5)
[2017-01-11 18:40] LABS: ALKALINE PHOSPHATASE 52 U/L (45-117)
[2017-01-11] MEDS ORDERED: ZOFRAN4 PO (20:55)
[2017-01-11] MEDS ORDERED: P20 PO (20:55)
[2017-01-11] MEDS ORDERED: VANCOCIN HCL125 MG PO (20:56)
[2017-01-11] MEDS ORDERED: REMICADE IV (20:57)
[2017-01-11 23:23] LABS: HEMATOCRIT 25.4 % (40.0-51.0); HEMOGLOBIN 8.6 g/dL (13.6-17.8)
[2017-01-12 06:35] LABS: HEMATOCRIT 24.6 % (40.0-51.0); HEMOGLOBIN 8.2 g/dL (13.6-17.8); MEAN CORPUS HGB CONC 33.3 g/dL (32.0-36.0); MEAN CORPUSCULAR HEMOGLOB 30.6 pg (26.0-34.0); MEAN CORPUSCULAR VOLUME 91.8 fL (80-100); MEAN PLATELET VOLUME 7.8 fL (9.2-13.0); PLATELET COUNT 366 10/3/uL (150-400); RBC DISTRIBUTION WIDTH 14.2 % (12.0-16.0); RED CELL COUNT 2.68 10/6/uL (4.7-6.1); WHITE BLOOD CELLS 4.5 10/3/uL (4.5-10.5)
[2017-01-12 06:36] LABS: MANUAL DIFF YES %
[2017-01-12 06:53] LABS: A/G RATIO 0.4 (0.7-1.9); ALBUMIN 1.6 G/DL (3.5-5.0); ALKALINE PHOSPHATASE 52 U/L (45-117); BUN (BLOOD UREA NITROGEN) 7 MG/DL (6-23); CALCIUM, SERUM 7.8 MG/DL (8.5-10.4); CHLORIDE, SERUM 100 MMOL/L (96-112); CO2 (CARBON DIOXIDE) 30 MMOL/L (24-34); GFR AFRICAN AMERICAN 138 ML/MIN (>=60); GFR NON AFRICAN AMERICAN 119 ML/MIN (>=60); GLOBULIN 3.7 G/DL (2.5-4.1); GLUCOSE, SERUM 168 MG/DL (60-99); POTASSIUM, SERUM 4.3 MMOL/L (3.5-5.3); SGOT(AST) 14 U/L (5-40); SGPT(ALT) 33 U/L (5-65); SODIUM, SERUM 135 MMOL/L (135-148); TOTAL BILIRUBIN 0.5 MG/DL (0-1.2); TOTAL PROTEIN 5.3 G/DL (6.0-8.5)
[2017-01-12 06:59] LABS: BAND NEUTROPHILS 3 %; LYMPHOCYTES 7 %; LYMPHOCYTES ABSOLUTE (CALC) 0.32 10/3/uL (0.67-4.30); MONOCYTES 7 %; MONOCYTES ABSOLUTE (CALC) 0.32 10/3/uL (0.21-1.20); NEUTROPHILS ABSOLUTE (CALC) 3.87 10/3/uL (2.02-8.40); SEGMENTED NEUTROPHIL (0) 83 %; TOTAL NUCLEATED CELLS 100
[2017-01-12 07:00] LABS: PLATELET ESTIMATE ADQ (ADEQUATE); RBC MORPHOLOGY NORM (NORMAL)
[2017-01-12 13:05] LABS: HEMATOCRIT 26.2 % (40.0-51.0); HEMOGLOBIN 8.7 g/dL (13.6-17.8)
[2017-01-12 17:39] LABS: HEMATOCRIT 27.6 % (40.0-51.0)
[2017-01-13 02:14] LABS: HEMATOCRIT 24.3 % (40.0-51.0)
[2017-01-13 06:50] LABS: HEMATOCRIT 23.8 % (40.0-51.0); HEMOGLOBIN 7.9 g/dL (13.6-17.8); MEAN CORPUS HGB CONC 33.2 g/dL (32.0-36.0); MEAN CORPUSCULAR HEMOGLOB 30.7 pg (26.0-34.0); MEAN CORPUSCULAR VOLUME 92.6 fL (80-100); MEAN PLATELET VOLUME 7.8 fL (9.2-13.0); PLATELET COUNT 366 10/3/uL (150-400); RBC DISTRIBUTION WIDTH 14.5 % (12.0-16.0); RED CELL COUNT 2.57 10/6/uL (4.7-6.1); WHITE BLOOD CELLS 4.1 10/3/uL (4.5-10.5)
[2017-01-13 06:53] LABS: MANUAL DIFF YES %
[2017-01-13 07:01] LABS: A/G RATIO 0.4 (0.7-1.9); ALBUMIN 1.5 G/DL (3.5-5.0); ALKALINE PHOSPHATASE 48 U/L (45-117); BUN (BLOOD UREA NITROGEN) 9 MG/DL (6-23); C-REACTIVE PROTEIN 84.6 MG/L (<8.0); CALCIUM, SERUM 7.7 MG/DL (8.5-10.4); CHLORIDE, SERUM 104 MMOL/L (96-112); CO2 (CARBON DIOXIDE) 29 MMOL/L (24-34); CREATININE 0.42 MG/DL (0.70-1.30); GFR AFRICAN AMERICAN 160 ML/MIN (>=60); GFR NON AFRICAN AMERICAN 138 ML/MIN (>=60); GLOBULIN 3.5 G/DL (2.5-4.1); POTASSIUM, SERUM 4.4 MMOL/L (3.5-5.3); SGOT(AST) 19 U/L (5-40); SGPT(ALT) 36 U/L (5-65); SODIUM, SERUM 138 MMOL/L (135-148); TOTAL BILIRUBIN 0.3 MG/DL (0-1.2)
[2017-01-13 07:02] LABS: GLUCOSE, SERUM 121 MG/DL (60-99)
[2017-01-13 07:16] LABS: SEGMENTED NEUTROPHIL (0) 57 %; TOTAL NUCLEATED CELLS 100
[2017-01-13 07:17] LABS: BAND NEUTROPHILS 27 %; LYMPHOCYTES 13 %; LYMPHOCYTES ABSOLUTE (CALC) 0.53 10/3/uL (0.67-4.30); MONOCYTES 3 %; MONOCYTES ABSOLUTE (CALC) 0.12 10/3/uL (0.21-1.20); NEUTROPHILS ABSOLUTE (CALC) 3.44 10/3/uL (2.02-8.40); PLATELET ESTIMATE ADQ (ADEQUATE); POIKILOCYTOSIS 1+ (5-10/OIF) (0-5/OIF); TARGET CELLS FEW (3-10/OIF) (0-1/OIF); TOXIC GRANULATION 1+
[2017-01-13 12:09] LABS: HEMOGLOBIN 8.1 g/dL (13.6-17.8)
[2017-01-14 04:30] LABS: HEMATOCRIT 25.9 % (40.0-51.0); HEMOGLOBIN 8.6 g/dL (13.6-17.8); MEAN CORPUS HGB CONC 33.2 g/dL (32.0-36.0); MEAN CORPUSCULAR HEMOGLOB 30.5 pg (26.0-34.0); MEAN CORPUSCULAR VOLUME 91.8 fL (80-100); MEAN PLATELET VOLUME 7.9 fL (9.2-13.0); PLATELET COUNT 408 10/3/uL (150-400); RBC DISTRIBUTION WIDTH 14.4 % (12.0-16.0); RED CELL COUNT 2.82 10/6/uL (4.7-6.1); WHITE BLOOD CELLS 4.3 10/3/uL (4.5-10.5)
[2017-01-14 04:33] LABS: MANUAL DIFF YES %
[2017-01-14 05:15] LABS: BAND NEUTROPHILS 25 %; LYMPHOCYTES 15 %; LYMPHOCYTES ABSOLUTE (CALC) 0.65 10/3/uL (0.67-4.30); MONOCYTES 3 %; MONOCYTES ABSOLUTE (CALC) 0.13 10/3/uL (0.21-1.20); NEUTROPHILS ABSOLUTE (CALC) 3.53 10/3/uL (2.02-8.40); SEGMENTED NEUTROPHIL (0) 57 %; TOTAL NUCLEATED CELLS 100
[2017-01-14 05:16] LABS: POIKILOCYTOSIS 1+ (5-10/OIF) (0-5/OIF)
[2017-01-14 05:17] LABS: PLATELET ESTIMATE SLT INC (ADEQUATE)
[2017-01-18 08:28] LABS: MEAN CORPUS HGB CONC 32.5 g/dL (32.0-36.0); MEAN CORPUSCULAR HEMOGLOB 30.8 pg (26.0-34.0); PLATELET COUNT 479 10/3/uL (150-400); RBC DISTRIBUTION WIDTH 16.1 % (12.0-16.0); RED CELL COUNT 3.38 10/6/uL (4.7-6.1)
[2017-01-18 08:29] LABS: HEMOGLOBIN 10.4 g/dL (13.6-17.8); MANUAL DIFF YES %; MEAN CORPUSCULAR VOLUME 94.7 fL (80-100)
[2017-01-18 08:42] LABS: A/G RATIO 0.6 (0.7-1.9); ALKALINE PHOSPHATASE 52 U/L (45-117); BUN (BLOOD UREA NITROGEN) 11 MG/DL (6-23); C-REACTIVE PROTEIN 23.5 MG/L (<8.0); CALCIUM, SERUM 8.2 MG/DL (8.5-10.4); CHLORIDE, SERUM 103 MMOL/L (96-112); CO2 (CARBON DIOXIDE) 26 MMOL/L (24-34); CREATININE 0.78 MG/DL (0.70-1.30); GFR AFRICAN AMERICAN 124 ML/MIN (>=60); GFR NON AFRICAN AMERICAN 107 ML/MIN (>=60); GLOBULIN 3.2 G/DL (2.5-4.1); GLUCOSE, SERUM 129 MG/DL (60-99); POTASSIUM, SERUM 4.1 MMOL/L (3.5-5.3); SGOT(AST) 28 U/L (5-40); SGPT(ALT) 39 U/L (5-65); SODIUM, SERUM 134 MMOL/L (135-148); TOTAL BILIRUBIN 0.5 MG/DL (0-1.2); TOTAL PROTEIN 5.2 G/DL (6.0-8.5)
[2017-01-18 08:55] LABS: ANISOCYTOSIS 1+ (5-10/OIF) (0-5/OIF); BAND NEUTROPHILS 29 %; LYMPHOCYTES 12 %; LYMPHOCYTES ABSOLUTE (CALC) 0.96 10/3/uL (0.67-4.30); MICROCYTES 1+ (5-10/OIF) (0-5/OIF); MONOCYTES 4 %; MONOCYTES ABSOLUTE (CALC) 0.32 10/3/uL (0.21-1.20); NEUTROPHILS ABSOLUTE (CALC) 6.72 10/3/uL (2.02-8.40); PLATELET ESTIMATE SLT INC (ADEQUATE); POLYCHROMASIA 1+ (2-5/OIF) (0-1/OIF); SEGMENTED NEUTROPHIL (0) 55 %; TOTAL NUCLEATED CELLS 100
[2017-01-20 07:21] LABS: BUN (BLOOD UREA NITROGEN) 6 MG/DL (6-23); CALCIUM, SERUM 8.1 MG/DL (8.5-10.4); CHLORIDE, SERUM 109 MMOL/L (96-112); CO2 (CARBON DIOXIDE) 29 MMOL/L (24-34); GFR AFRICAN AMERICAN 138 ML/MIN (>=60); GFR NON AFRICAN AMERICAN 119 ML/MIN (>=60); GLUCOSE, SERUM 80 MG/DL (60-99); POTASSIUM, SERUM 3.3 MMOL/L (3.5-5.3); SODIUM, SERUM 145 MMOL/L (135-148)
[2017-01-20] MEDS ORDERED: NOVOLOG SC (09:56)
[2017-01-20] MEDS ORDERED: UCERIS9 MG PO (09:56)
[2017-01-20] MEDS ORDERED: PROTONIX PO (09:57)
[2017-01-20] MEDS ORDERED: P20 PO (09:57)
== END 2017-01-20 18:12 | disposition home or self-care (01) | DRG 386 ==
LOC: 4SO 17:00
PROVIDERS: Internal Medicine Gastroenterology
DX: K51.90 Ulcerative colitis, unspecified, without complications (principal); E44.0 Moderate protein-calorie malnutrition; A04.7 Enterocolitis due to Clostridium difficile; D50.9 Iron deficiency anemia, unspecified; R73.9 Hyperglycemia, unspecified; Z85.9 Personal history of malignant neoplasm, unspecified; Z88.1 Allergy status to other antibiotic agents; Z83.3 Family history of diabetes mellitus; Z87.442 Personal history of urinary calculi; Z68.35 Body mass index [BMI] 35.0-35.9, adult; Z88.6 Allergy status to analgesic agent; Z79.52 Long term (current) use of systemic steroids; Z79.899 Other long term (current) drug therapy
CPT/HCPCS: 36415; 71010; 74020; 74177; 80048; 80053; 81001; 82728; 82962; 83540; 83550; 83690; 85014; 85018; 85025; 85610; 86140; 86850; 86900; 86901; 86920; 87040; 87150; 87493; 87493-59; 93005; 96374; 99284; A9270-GY; J1170; J2405; J2916; J2920; J2930; P9047; Q9967